=== PATIENT | male | born 1975 | race Caucasian/White ===

== ENCOUNTER 2020-10-01 17:08 | Emergency (ER) | payer OTHER ==
[2020-10-01 18:42] LABS: RED BLOOD COUNT 4.72 M/UL (4.20-5.50); WHITE BLOOD COUNT 6.1 K/UL (4.5-11.0)
[2020-10-01 19:03] LABS: BUN/CREATININE RATIO 16 (0-10)
[2020-10-01] MEDS ORDERED: DOXYCYCLINE HY100 MG PO (21:08)
[2020-10-01] MEDS ORDERED: HYDROCODONE-HOMA5 ML PO (21:08)
[2020-10-01] MEDS ORDERED: DECADRON6 MG PO (21:08)
== END 2020-10-01 21:20 | disposition home or self-care (01) ==
LOC: ER1 17:08
PROVIDERS: Emergency Medicine
DX: U07.1 COVID-19 (principal); E11.9 Type 2 diabetes mellitus without complications; F17.290 Nicotine dependence, other tobacco product, uncomplicated
CPT/HCPCS: 71045; 80053; 82550; 82553; 83874; 83880; 84484; 85025; 93005; 96374; 99285; J1885; U0002